=== PATIENT | female | born 1985 | race Hispanic/Latino ===

== ENCOUNTER 2021-02-12 09:41 | Day surgery (SDC) | payer OTHER ==
[2021-02-10 10:35] VITALS: BP 127/62
[2021-02-10 10:54] LABS: BASOPHILS % (AUTO) 0.4 % (0.0-5.0); EOSINOPHILS % (AUTO) 2.5 % (0.0-8.0); HEMATOCRIT 40.1 % (36-48); MEAN CORPUSCULAR HEMOGLOBIN 29.8 pg (27.0-33.0); MEAN CORPUSCULAR HGB CONC 33.4 g/dL (32.0-36.0); MEAN CORPUSCULAR VOLUME 89.3 fL (79-99); MONOCYTES % (AUTO) 5.9 % (3.0-13.0); NEUTROPHILS % (AUTO) 62.1 % (40.0-77.0); PLATELET COUNT (AUTO) 337 K/uL (130-400); RED BLOOD CELL COUNT(AUTO) 4.49 MIL/uL (4.00-5.50); RED CELL DISTRIBUTION WIDTH 12.5 % (11.0-15.5); WHITE BLOOD COUNT (AUTO) 6.9 K/uL (4.8-10.8)
[~2021-02-12] VITALS: Ht 157.5 cm; Wt 86.1 kg
[2021-02-12] VITALS (15 sets, daily range): BP systolic 101–122; BP diastolic 54–75
[~2021-02-12 09:41] MED LIST: CALDOLOR 800MG+NS 250ML 250 ML IV SCH; CLINDAMYCIN IVPB 600MG/50ML 50 ML IV SCH; LACTATED RINGERS 1000ML 1,000 ML IV SCH
[2021-02-12] MEDS ORDERED: LIDOCAINE PF 100MG/5ML (2%) SYRINGE 5ML ONE (11:33)
[2021-02-12] MEDS ORDERED: GLYCOPYRROLATE 1 MG/5 ML SYRINGE ONE (11:33)
[2021-02-12] MEDS ORDERED: DEXAMETHASONE SOD PHOSPHATE 10MG/ML 1ML VIAL ONE (11:33)
[2021-02-12] MEDS ORDERED: SUCCINYLCHOLINE CHLORIDE 20 MG/ML 10 ML VIAL ONE (11:33)
[2021-02-12] MEDS ORDERED: ROCURONIUM 10MG/1ML SYR 10 MG/ML ML ONE (11:34)
[2021-02-12] MEDS ORDERED: NEOSTIGMINE 5MG/5ML SYR IV ONE (11:34)
[2021-02-12] MEDS ORDERED: MIDAZOLAM HCL 1 MG/ML 2ML VIAL ONE (11:34)
[2021-02-12] MEDS ORDERED: PROPOFOL 10 MG/ML 20ML VIAL IV ONE (11:34)
[2021-02-12] MEDS ORDERED: ONDANSETRON 4MG INJ ONE (11:34)
[2021-02-12] MEDS ORDERED: FENTANYL CITRATE PF 50 MCG/1 ML 2ML VIAL ONE (11:35)
[2021-02-12] MEDS ORDERED: CLINDAMYCIN IVPB 600MG/50ML 50 ML IV ONE (12:05)
[2021-02-12] MEDS ORDERED: CALDOLOR 800MG+NS 250ML 250 ML IV ONE (12:21)
[2021-02-12] MEDS ORDERED: MEPERIDINE-PF 25 MG/ML SYG ONE (13:15)
[2021-02-12] MEDS ORDERED: SILVER NITRATE APPLICATOR 1 SWAB TP ONE (13:21)
== END 2021-02-12 15:20 | disposition home or self-care (01) ==
LOC: DAH 09:41
PROVIDERS: ATTEND Obstetrics & Gynecology
DX: N92.1 Excessive and frequent menstruation with irregular cycle (principal); Z20.822 Contact with and (suspected) exposure to COVID-19; N84.0 Polyp of corpus uteri; N81.10 Cystocele, unspecified; F17.200 Nicotine dependence, unspecified, uncomplicated; Z88.0 Allergy status to penicillin; Z90.49 Acquired absence of other specified parts of digestive tract; Z98.890 Other specified postprocedural states
CPT/HCPCS: 36415; 58563; 84703; 85025; 86850; 86900; 86901; 87635; A4215; A4216; A4221; A4222; A4223 ×2; A4351; A4600; A4663; A6260; C9803; J0330; J1100; J1741; J2001; J2175; J2250; J2405; J2704; J2710; J3010; J3490 ×2; J7030; J7120

== ENCOUNTER 2021-02-14 23:24 | Emergency (ER) | payer OTHER ==
[~2021-02-14] VITALS: Ht 157.5 cm; Wt 84.4 kg
[2021-02-15 00:02] LABS: BASOPHILS % (AUTO) 0.5 % (0.0-5.0); EOSINOPHILS % (AUTO) 1.5 % (0.0-8.0); HEMATOCRIT 37.1 % (36-48); LYMPHOCYTES % (AUTO) 32.3 % (21.0-51.0); MEAN CORPUSCULAR HEMOGLOBIN 30.7 pg (27.0-33.0); MEAN CORPUSCULAR VOLUME 90.5 fL (79-99); MONOCYTES % (AUTO) 5.7 % (3.0-13.0); NEUTROPHILS % (AUTO) 59.7 % (40.0-77.0); PLATELET COUNT (AUTO) 280 K/uL (130-400); RED CELL DISTRIBUTION WIDTH 12.7 % (11.0-15.5); WHITE BLOOD COUNT (AUTO) 9.9 K/uL (4.8-10.8)
[2021-02-15 00:11] LABS: POTASSIUM 4.4 mmol/L (3.5-5.1)
[2021-02-15 00:15] LABS: ALBUMIN 3.5 g/dL (3.5-5.0); BILIRUBIN,TOTAL 0.2 mg/dL (0.2-1.0)
[2021-02-15 01:08] LABS: APPEARANCE,URINE Clear (CLEAR); BILIRUBIN,URINE Negative (NEGATIVE); COLOR,URINE Yellow (YELLOW); GLUCOSE, URINE (UA) Negative (NEGATIVE); KETONES,URINE Trace mg/dL (NEGATIVE); LEUKOCYTE ESTERASE ,URINE Moderate (NEGATIVE); NITRATE,URINE Negative (NEGATIVE); OCCULT BLOOD,URINE Negative (NEGATIVE); PROTEIN,URINE Negative (NEGATIVE)
[2021-02-15 01:36] LABS: RBC,URINE 0-1 /HPF (0-1)
[2021-02-15 01:37] LABS: BACTERIA,URINE Moderate /HPF (None Seen)
[2021-02-15] MEDS ORDERED: CEFTRIAXONE 1G VIAL ONE (01:59)
[2021-02-15] MEDS ORDERED: CEFTRIAXONE 1G VIAL IVP ONE (02:00)
[2021-02-15] MEDS ORDERED: KETOROLAC 30MG VIAL (30MG/ML) ONE (02:00)
[2021-02-15] MEDS ORDERED: KETOROLAC 30MG VIAL (30MG/ML) IV ONE (02:00)
[2021-02-15 02:24] LABS: AMPHET/METH SCREEN,URINE NEGATIVE (NEGATIVE); BARBITURATE SCREEN, URINE NEGATIVE (NEGATIVE); BENZODIAZEPINES SCREEN,URINE NEGATIVE (NEGATIVE); CANNABINOID SCREEN,URINE POSITIVE (NEGATIVE); COCAINE SCREEN,URINE NEGATIVE (NEGATIVE); OPIATE SCREEN,URINE NEGATIVE (NEGATIVE); PHENCYCLIDINE SCREEN,URINE NEGATIVE (NEGATIVE)
[2021-02-15] MEDS ORDERED: PHARMACY COMMUNICATION MISC SCH ×2 (02:30)
[2021-02-15] MEDS ORDERED: ONDA4TAB10 PO (03:29)
[2021-02-15] MEDS ORDERED: CEPH500B PO (03:29)
[2021-02-15] MEDS ORDERED: 0.9%NACL 1000ML 1,000 ML IV ONE (03:30)
[2021-02-15 03:34] VITALS: BP 107/64
== END 2021-02-15 03:49 | disposition home or self-care (01) ==
LOC: EDH 23:24
DX: N39.0 Urinary tract infection, site not specified (principal); E86.9 Volume depletion, unspecified; F12.90 Cannabis use, unspecified, uncomplicated; F17.200 Nicotine dependence, unspecified, uncomplicated; Z88.0 Allergy status to penicillin; Z79.1 Long term (current) use of non-steroidal anti-inflammatories (NSAID); Z79.899 Other long term (current) drug therapy
CPT/HCPCS: 36415 ×2; 80053; 80305; 81001; 83605; 83690; 84484; 85025; 87077; 87088; 87186; 93005; 96361; 96374; 96375; 99285; J0696; J1885